=== PATIENT | male | born 1995 | race Caucasian/White ===

== ENCOUNTER 2016-10-29 02:16 | Emergency (ER) | payer OTHER ==
[2016-10-29] MEDS ORDERED: ONDANSETRON DISINTEGRATING 4 MG TAB ONE ×2 (02:38→06:10)
[2016-10-29] MEDS ORDERED: ONDANSETRON DISINTEGRATING 4 MG TAB PO ONE (02:45)
--- NOTE | 2016-10-29 03:19 | EDPHY ---
H & P Stated Complaint: N and V and D since this evening HPI/ROS: HPI CHIEF COMPLAINT: Nausea, vomiting, diarrhea, abdominal cramping HISTORY OF PRESENT ILLNESS: This patient very pleasant 21-year-old male, denies any significant medical history, only surgical history is significant for left inguinal hernia repair, presents to the emergency room with sudden onset nausea vomiting and diarrhea and abdominal cramping. This started suddenly around 10:00 p.m. this evening. Patient tells me that he ate Illegal Petes and had chicken around 830. Around 10:00 p.m. he developed diffuse abdominal cramping nausea and vomiting. He states initially he was vomiting everything he ate, then had just secretions. Denies bilious vomiting or blood. He does admit to having watery diarrhea brown in nature initially and then saw bright red blood in it. Denies fever. Currently denies chest pain or shortness of breath, denies fever. He does tell me that he was hyperventilating had tingling in his hands and feet. Past Medical History: No significant medical history Past Surgical History: Inguinal hernia repair Social History: Denies daily use of drugs alcohol tobacco products, is a constant Family History: Noncontributory ROS REVIEW OF SYSTEMS: A comprehensive 10 point review of systems is otherwise negative aside from elements mentioned in the history of present illness. Exam Constitutional triage nursing summary reviewed, vital signs reviewed, awake/ alert. Eyes normal conjunctivae and sclera, EOMI, PERRLA. HENT normal inspection, atraumatic, moist mucus membranes, no epistaxis, neck supple/ no meningismus, no raccoon eyes. Respiratory clear to auscultation bilaterally, normal breath sounds, no respiratory distress, no wheezing. Cardiovascular rate normal, regular rhythm, no murmur, no edema, distal pulses normal. Gastrointestinal soft, tender palpation in the periumbilical region, no rebound, no guarding, normal bowel sounds, no distension, no pulsatile mass. Genitourinary no CVA tenderness. Musculoskeletal no midline vertebral tenderness, full range of motion, no calf swelling, no tenderness of extremities, no meningismus, good pulses, neurovascularly intact. Skin pink, warm, & dry, no rash, skin atraumatic. Neurologic awake, alert and oriented x 3, AAOx3, moves all 4 extremities equally, motor intact, sensory intact, CN II-XII intact, normal cerebellar, normal vision, normal speech. Psychiatric normal mood/affect. Heme/Lymph/Immune no lymphadenopathy. Differential diagnosis includes but is not limited to and in no particular order : Food-borne illness, acute appendicitis Bowel obstruction, appendicitis, gallbladder disease, diverticulitis, colitis, enteritis, perforated viscus, gastritis, GERD, esophagitis, urinary tract infection, pyelonephritis, kidney stones Medical Decision Making: plan for this patient is to be placed on full rug layer patient had IV fluid bolus normal saline x2 L, IV Zofran for nausea and IV fentanyl for pain control 50 mcg ordered. Patient had a CT scan abdomen pelvis with IV contrast rule out acute appendicitis given his periumbilical pain. However history most likely is food-borne illness given eating illegale petes at 8:30 a.m. and then suddenly onset of nausea vomiting abdominal cramping watery diarrhea at 10:00 p.[address].. Re-evaluation: CT scan of the Abdomen pelvis with IV contrast The results of the study are no evidence of acute appendicitis this does show small bowel enteritis no evidence of free air or perforation, no bowel obstruction. The study was read by Dr. carolina Hayes I viewed the images myself on the PACS system. Source: Patient - Personal History Current Tetanus/Diphtheria Vaccine: Yes Current Tetanus Diphtheria and Acellular Pertussis (TDAP): Yes Tetanus Vaccine Date: 2013 - Medical/Surgical History Hx Asthma: No Hx Chronic Respiratory Disease: No Hx Diabetes: No Hx Cardiac Disease: No Hx Renal Disease: No Hx Cirrhosis: No Hx Alcoholism: No Hx HIV/AIDS: No Hx Splenectomy or Spleen Trauma: No Other PMH: r groin tendon repair - Social History Smoking Status: Current some day smoker Constitutional: Initial Vital Signs Temperature (C) 36.9 C 10/29/16 02:29 Heart Rate 100 10/29/16 02:29 Respiratory Rate 20 10/29/16 02:29 Blood Pressure 105/60 10/29/16 02:29 O2 Sat (%) 99 10/29/16 02:29 O2 Delivery Mode Room Air Allergies/Adverse Reactions: No Known Allergies Allergy (Unverified 10/29/16 02:28) Home Medications: Medication Instructions Recorded Ondansetron HCl [Zofran] 4 mg PO Q4-6PRN PRN #10 tablet 10/29/16 Medical Decision Making - Data Points Laboratory Results: Laboratory Results 10/29/16 03:25 10/29/16 03:25 10/29/16 10/29/16 10/29/16 03:25 03:25 03:25 WBC RBC Hgb Hct MCV MCH MCHC RDW Plt Count MPV Neut % (Auto) Lymph % (Auto) [place] % (Auto) Eos % (Auto) Baso % (Auto) Nucleat RBC Rel Count Absolute Neuts (auto) Absolute Lymphs (auto) Absolute Monos (auto) Absolute Eos (auto) Absolute Basos (auto) Absolute Nucleated RBC Immature Gran % Immature Gran # Sodium 141 mEq/L mEq/L (134-144) Potassium 4.3 mEq/L mEq/L (3.5-5.2) Chloride 104 mEq/L mEq/L (97-110) Carbon Dioxide 20 mEq/l L mEq/l (22-31) Anion Gap 17 mEq/L H mEq/L (8-16) BUN 23 mg/dL mg/dL (7-23) Creatinine 1.1 mg/dL mg/dL (0.7-1.3) Estimated GFR > 60 Glucose 140 mg/dL H mg/dL (70-100) Calcium 10.0 mg/dL mg/dL (8.5-10.4) Total Bilirubin 2.4 mg/dL H mg/dL (0.1-1.4) Conjugated Bilirubin 0.5 mg/dL mg/dL (0.0-0.5) Unconjugated Bilirubin 1.9 mg/dL H mg/dL (0.0-1.1) AST 40 IU/L IU/L (17-59) ALT 52 IU/L IU/L (21-72) Alkaline Phosphatase 78 IU/L IU/L (38-126) Total Protein 8.6 g/dL H g/dL (6.3-8.2) Albumin 5.2 g/dL H g/dL (3.5-5.0) Lipase 201.0 IU/L IU/L (23-300) Stool Occult Bld Scrn POSITIVE H (NEGATIVE) 10/29/16 03:25 WBC 10.82 10^3/uL H 10^3/uL (3.80-9.50) RBC 5.46 10^6/uL 10^6/uL (4.40-6.38) Hgb 17.7 g/dL H g/dL (13.7-17.5) Hct 48.8 % % (40.0-51.0) MCV 89.4 fL fL (81.5-99.8) MCH 32.4 pg pg (27.9-34.1) MCHC 36.3 g/dL g/dL (32.4-36.7) RDW 12.0 % % (11.5-15.2) Plt Count 256 10^3/uL 10^3/uL (150-400) MPV 10.6 fL fL (8.7-11.7) Neut % (Auto) 86.5 % H % (39.3-74.2) Lymph % (Auto) 3.2 % L % (15.0-45.0) [place] % (Auto) 9.1 % % (4.5-13.0) Eos % (Auto) 0.2 % L % (0.6-7.6) Baso % (Auto) 0.5 % % (0.3-1.7) Nucleat RBC Rel Count 0.0 % % (0.0-0.2) Absolute Neuts (auto) 9.37 10^3/uL H 10^3/uL (1.70-6.50) Absolute Lymphs (auto) 0.35 10^3/uL L 10^3/uL (1.00-3.00) Absolute Monos (auto) 0.98 10^3/uL H 10^3/uL (0.30-0.80) Absolute Eos (auto) 0.02 10^3/uL L 10^3/uL (0.03-0.40) Absolute Basos (auto) 0.05 10^3/uL 10^3/uL (0.02-0.10) Absolute Nucleated RBC 0.00 10^3/uL 10^3/uL (0-0.01) Immature Gran % 0.5 % % (0.0-1.1) Immature Gran # 0.05 10^3/uL 10^3/uL (0.00-0.10) Sodium Potassium Chloride Carbon Dioxide Anion Gap BUN Creatinine Estimated GFR Glucose Calcium Total Bilirubin Conjugated Bilirubin Unconjugated Bilirubin AST ALT Alkaline Phosphatase Total Protein Albumin Lipase Stool Occult Bld Scrn Medications Given: Discontinued Medications Fentanyl (Sublimaze) 50 mcg IVP EDNOW ONE Stop: 10/29/16 03:59 Last Admin: 10/29/16 04:36 Dose: 50 mcg Sodium Chloride (Ns) 1,000 mls @ 0 mls/hr IV ONCE ONE PRN Reason: Wide Open Stop: 10/29/16 03:32 Last Admin: 10/29/16 03:33 Dose: 1,000 mls Sodium Chloride (Ns) 1,000 mls @ 0 mls/hr IV ONCE ONE PRN Reason: Wide Open Stop: 10/29/16 03:38 Last Admin: 10/29/16 04:25 Dose: 1,000 mls Sodium Chloride (Ns) 1,000 mls @ 0 mls/hr IV ONCE ONE PRN Reason: Wide Open Stop: 10/29/16 05:03 Last Admin: 10/29/16 05:00 Dose: 1,000 mls Ondansetron HCl (Zofran Odt) 4 mg PO EDNOW ONE Stop: 10/29/16 02:46 Last Admin: 10/29/16 02:46 Dose: 4 mg Ondansetron HCl (Zofran) 4 mg IVP EDNOW ONE Stop: 10/29/16 03:59 Last Admin: 10/29/16 04:35 Dose: 4 mg Departure - Departure Disposition: Home, Routine, Self-Care Clinical Impression: Vomiting and diarrhea Abdominal pain Qualifiers: Abdominal location: generalized Qualified Code(s): R10.84 - Generalized abdominal pain Condition: Good Instructions: Dehydration (ED), Abdominal Pain (ED) Additional Instructions: 1. Stat try to stay well-hydrated. Do not eat any spicy fatty greasy foods for the next 48 hours. 2. Return emergency room if develops worsening vomiting severe abdominal pain fever worsening diarrhea worsening bleeding. 3. Please call in 24 to 48 about her stool studies. Referrals: Patient,NotPresent [Unknown] - As per Instructions Mario Partida MD, FACG [Medical Doctor] - As per Instructions Prescriptions: Ondansetron HCl [Zofran] 4 mg PO Q4-6PRN PRN #10 tablet PRN Reason: Nausea/Vomiting, Use 1st
[2016-10-29] MEDS ORDERED: NS 1,000 ML IV ONE ×3 (03:31→05:02)
[2016-10-29 03:37] LABS: % IMMATURE GRANULYOCYTES 0.5 % (0.0-1.1); ABSOLUTE IMMATURE GRANULOCYTES 0.05 10^3/uL (0.00-0.10); ADD DIFF? NO; ADD MORPH? NO; ADD SCAN? NO; ATYPICAL LYMPHOCYTE FLAG 0 (0-99); FRAGMENT RBC FLAG 0 (0-99); HEMATOCRIT 48.8 % (40.0-51.0); HEMOGLOBIN 17.7 g/dL (13.7-17.5); LEFT SHIFT FLG 0 (0-99); LIPEMIA HEMOLYSIS FLAG 90 (0-99); MEAN CELL HEMOGLOBIN 32.4 pg (27.9-34.1); MEAN CELL HEMOGLOBIN CONCENTR. 36.3 g/dL (32.4-36.7); MEAN CELL VOLUME 89.4 fL (81.5-99.8); MEAN PLATELET VOLUME 10.6 fL (8.7-11.7); PLATELET CLUMPS FLAG 0 (0-99); PLATELET COUNT 256 10^3/uL (150-400); RED BLOOD CELL COUNT 5.46 10^6/uL (4.40-6.38)
[2016-10-29 03:57] LABS: ALANINE AMINOTRANSFERASE 52 IU/L (21-72); ALBUMIN 5.2 g/dL (3.5-5.0); ALKALINE PHOSPHATASE 78 IU/L (38-126); ANION GAP 17 mEq/L (8-16); ASPARTATE AMINOTRANSFERASE 40 IU/L (17-59); BILIRUBIN,TOTAL 2.4 mg/dL (0.1-1.4); BILIRUBIN-CONJUGATED 0.5 mg/dL (0.0-0.5); BILIRUBIN-UNCONJUGATED 1.9 mg/dL (0.0-1.1); CARBON DIOXIDE 20 mEq/l (22-31); CHLORIDE 104 mEq/L (97-110); CREATININE 1.1 mg/dL (0.7-1.3); GLOMERULAR FILTRATION RATE > 60; GLUCOSE 140 mg/dL (70-100); POTASSIUM 4.3 mEq/L (3.5-5.2); SODIUM 141 mEq/L (134-144); TOTAL PROTEIN 8.6 g/dL (6.3-8.2)
[2016-10-29] MEDS ORDERED: ONDANSETRON 4 MG/2 ML VIAL IVP ONE (03:58)
[2016-10-29] MEDS ORDERED: fentaNYL 100 MCG/2 ML INJ IVP ONE (03:58)
[2016-10-29] MEDS ORDERED: IOPAMIDOL (ISOVUE-300) 100 ML BTL IV ONE (04:02)
[2016-10-29 06:07] VITALS: RESP 18
[2016-10-29 06:08] VITALS: BP 118/70; PULSE 93; TEMP 98.2; O2SAT 95
== END 2016-10-29 06:20 | disposition home or self-care (01) ==
DX: R19.7 Diarrhea, unspecified (principal); R11.10 Vomiting, unspecified; R10.84 Generalized abdominal pain; F17.200 Nicotine dependence, unspecified, uncomplicated
CPT/HCPCS: 96374; J2405; J3010; Q9967